=== PATIENT | male | born 1980 | race Caucasian/White ===

== ENCOUNTER 2018-10-28 14:48 | Emergency (ER) | payer MEDICAID ==
[~2018-10-28] VITALS: Ht 175.3 cm; Wt 9.1 kg
[~2018-10-28 14:48] MED LIST: CYCL-1 PO; CYCL-394 PO; NO HOME MEDS
[2018-10-28] MEDS ORDERED: ibuprofen tablet 400 MG TABLET PO ONE (16:25)
[2018-10-28 16:47] VITALS: BP 160/110
== END 2018-10-28 16:48 | disposition home or self-care (01) ==
LOC: ER 14:49
DX: S60.221A Contusion of right hand, initial encounter (principal); M79.644 Pain in right finger(s); Z79.899 Other long term (current) drug therapy; W22.01XA Walked into wall, initial encounter; Y93.89 Activity, other specified; Y92.89 Other specified places as the place of occurrence of the external cause; Y99.8 Other external cause status
CPT/HCPCS: 29125; 73130; 99283

== ENCOUNTER 2021-01-25 06:58 | Emergency (ER) | payer MEDICAID, OTHER ==
[~2021-01-25] VITALS: Ht 175.3 cm; Wt 97.7 kg
[2021-01-25] MEDS ORDERED: iohexol 350MG/ML 100ml bottle IV ONE (09:46)
[2021-01-25 10:03] LABS: ALBUMIN 4.3 G/DL (3.4-5.0); ANION GAP 15 (8-16); BLOOD UREA NITROGEN 10 MG/DL (7-18); BUN/CREATININE RATIO 14.9 (5.4-32.0); CALCIUM 8.9 MG/DL (8.5-10.1); CHLORIDE 101 MMOL/L (99-107); CREATININE 0.67 MG/DL (0.60-1.10); GLUCOSE 94 MG/DL (70-104); POTASSIUM 3.1 MMOL/L (3.5-5.1); SODIUM 139 MMOL/L (135-145); TOTAL CARBON DIOXIDE 23.1 MMOL/L (24-32); eGFR > 90 ML/MIN
== END 2021-01-25 14:13 | disposition home or self-care (01) ==
LOC: ER 06:58
DX: S83.124 Posterior dislocation of proximal end of tibia, right knee (principal); M25.561 Pain in right knee; Z98.890 Other specified postprocedural states; Z79.899 Other long term (current) drug therapy; Z72.89 Other problems related to lifestyle; X58.XXXA Exposure to other specified factors, initial encounter; Y93.01 Activity, walking, marching and hiking; Y92.89 Other specified places as the place of occurrence of the external cause; Y99.8 Other external cause status
CPT/HCPCS: 29505; 36415; 73564; 73706; 80048; 99285; Q9967